=== PATIENT | female | born 1995 | race American Indian/Alaskan Native ===

== ENCOUNTER 2019-02-22 01:43 | Emergency (ER) | payer MEDICAID, OTHER ==
--- NOTE | 2019-02-22 03:00 | Emergency Department Report ---
ED General Adult HPI - General Chief complaint: Extremity Injury, Upper Stated complaint: BOTH SHOULDER/ARM PAIN Time Seen by Provider: 02/22/19 02:51 Source: patient Mode of arrival: Ambulatory Limitations: No Limitations - History of Present Illness Initial comments: 23 y.o. female with no PMHx presents with complaint of bilateral shoulder and left arm pain. Patient is brought in police custody and states that her arm was being pulled on. Patient denies any direct falls to a prior history of dislocation. Patient states she is right-hand dominant. Patient denies any head trauma. - Related Data Previous Rx's Medication Instructions Recorded Last Taken Type Ciprofloxacin HCl [Cipro] 500 mg PO Q12H #14 tab 11/07/13 Unknown Rx HYDROcodone/APAP 5-325 [[place] 1 each PO Q6HR PRN #16 tablet 11/07/13 Unknown Rx 5-325 mg TAB] Nitrofurantoin [place]/M-Cryst 100 mg PO Q12HR #14 capsule 05/13/14 Unknown Rx [Macrobid] Pnv 21/Iron Ps,Heme Ppep/Folic 1 each PO QDAY #30 tablet 05/13/14 Unknown Rx [Prefera Ob Tablet] Acetaminophen/Codeine [Tylenol #3] 1 tab PO QHS #7 tablet 03/22/15 Unknown Rx cephALEXin [Keflex] 500 mg PO Q8HR #21 cap 07/30/15 Unknown Rx Triamcinolone 0.1% [Kenalog 0.1% 1 applic TP TID 14 Days tube 08/05/15 Unknown Rx CREAM] Lidocain2.5%/Prilocai2.5% [Emla] 1 applic TP ONCE #1 tube 01/02/16 Unknown Rx Azithromycin [Zithromax Z-TERENCE] 250 mg PO DAILY #6 tablet 07/21/16 Unknown Rx Cetirizine HCl [ZyrTEC] 10 mg PO DAILY #20 capsule 07/21/16 Unknown Rx Ibuprofen [Motrin 800 MG tab] 800 mg PO TID PRN #30 tablet 07/21/16 Unknown Rx Allergies Allergy/AdvReac Type Severity Reaction Status Date / Time No Known Allergies Allergy Verified 04/26/15 16:04 ED Review of Systems ROS: Stated complaint: BOTH SHOULDER/ARM PAIN Other details as noted in HPI Constitutional: denies: chills, fever Eyes: denies: eye pain, eye discharge, vision change ENT: denies: ear pain, throat pain Respiratory: denies: cough, shortness of breath, wheezing Cardiovascular: denies: chest pain, palpitations Endocrine: no symptoms reported Gastrointestinal: denies: abdominal pain, nausea, diarrhea Genitourinary: denies: urgency, dysuria, discharge Musculoskeletal: other (shoulder pain). denies: back pain, joint swelling, arthralgia Skin: denies: rash, lesions Neurological: denies: headache, weakness, paresthesias Psychiatric: denies: anxiety, depression Hematological/Lymphatic: denies: easy bleeding, easy bruising ED Past Medical Hx - Past Medical History Previous Medical History?: Yes Hx Hypertension: No Hx Congestive Heart Failure: No Hx Diabetes: No Hx Deep Vein Thrombosis: No Hx Renal Disease: No Hx Sickle Cell Disease: No Hx Seizures: No Hx Asthma: No Hx COPD: No Hx HIV: No Additional medical history: Bronchitis - Surgical History Past Surgical History?: No - Social History Smoking Status: Current Every Day Smoker Substance Use Type: None - Medications Home Medications: Home Medications Medication Instructions Recorded Confirmed Last Taken Type Ciprofloxacin HCl [Cipro] 500 mg PO Q12H #14 tab 11/07/13 Unknown Rx HYDROcodone/APAP 5-325 [[place] 1 each PO Q6HR PRN #16 tablet 11/07/13 Unknown Rx 5-325 mg TAB] Nitrofurantoin [place]/M-Cryst 100 mg PO Q12HR #14 capsule 05/13/14 Unknown Rx [Macrobid] Pnv 21/Iron Ps,Heme Ppep/Folic 1 each PO QDAY #30 tablet 05/13/14 Unknown Rx [Prefera Ob Tablet] Acetaminophen/Codeine [Tylenol #3] 1 tab PO QHS #7 tablet 03/22/15 01/02/16 Unknown Rx cephALEXin [Keflex] 500 mg PO Q8HR #21 cap 07/30/15 Unknown Rx Triamcinolone 0.1% [Kenalog 0.1% 1 applic TP TID 14 Days tube 08/05/15 Unknown Rx CREAM] Lidocain2.5%/Prilocai2.5% [Emla] 1 applic TP ONCE #1 tube 01/02/16 Unknown Rx Azithromycin [Zithromax Z-TERENCE] 250 mg PO DAILY #6 tablet 07/21/16 Unknown Rx Cetirizine HCl [ZyrTEC] 10 mg PO DAILY #20 capsule 07/21/16 Unknown Rx Ibuprofen [Motrin 800 MG tab] 800 mg PO TID PRN #30 tablet 07/21/16 Unknown Rx ED Physical Exam - General Limitations: No Limitations General appearance: alert, in no apparent distress - Head Head exam: Present: atraumatic, normocephalic - Eye Eye exam: Present: normal appearance - ENT ENT exam: Present: mucous membranes moist - Neck Neck exam: Present: normal inspection - Respiratory Respiratory exam: Present: normal lung sounds bilaterally. Absent: respiratory distress - Cardiovascular Cardiovascular Exam: Present: regular rate, normal rhythm. Absent: systolic murmur, diastolic murmur, rubs, gallop - GI/Abdominal GI/Abdominal exam: Present: soft, normal bowel sounds - Extremities Exam Extremities exam: Present: normal inspection, full ROM, tenderness (mild tenderness noted in right shoulder with no erythema or ecchymosis) - Back Exam Back exam: Present: normal inspection - Neurological Exam Neurological exam: Present: alert, oriented X3 - Psychiatric Psychiatric exam: Present: normal affect, normal mood - Skin Skin exam: Present: warm, dry, intact, normal color. Absent: rash ED Course Vital Signs 02/22/19 01:51 Temperature 97.9 F Pulse Rate 119 H Respiratory 20 Rate Blood Pressure 137/80 O2 Sat by Pulse 98 Oximetry Critical care attestation.: If time is entered above; I have spent that time in minutes in the direct care of this critically ill patient, excluding procedure time. ED Disposition Clinical Impression: Shoulder pain, acute Disposition: DC-01 TO HOME OR SELFCARE Is pt being admited?: No Condition: Stable Instructions: Shoulder Sprain (ED) Referrals: PRIMARY CARE, [Primary Care Provider] - 3-5 Days Time of Disposition: 03:05 Print Language: SUDANESE
[2019-02-22 07:11] VITALS: BP 130/68
== END 2019-02-22 03:20 | disposition home or self-care (01) ==
LOC: ED 01:43 → EEVIPCON 01:43 → ED 03:20
DX: M25.511 Pain in right shoulder (principal); M25.512 Pain in left shoulder; F17.200 Nicotine dependence, unspecified, uncomplicated
CPT/HCPCS: 99281